=== PATIENT | female | born 2000 | race African-American/Black ===

== ENCOUNTER 2018-03-09 23:01 | Emergency (ER) | payer SELFPAY ==
[2018-03-09 23:18] LABS: URINE HCG POC HCG NEGATIVE (Negative)
[2018-03-09 23:37] LABS: BILIRUBIN,URINE NEGATIVE (NEG); CLARITY,URINE CLEAR; COLOR,URINE YELLOW; GLUCOSE,URINE NEGATIVE (NEG); NITRITE,URINE NEGATIVE (NEG); PROTEIN,URINE NEGATIVE (NEG-TRACE)
[2018-03-09 23:41] LABS: SQUAMOUS EPITHELIAL CELL,UR FEW /LPF
[2018-03-09 23:42] LABS: BACTERIA,URINE 0 /HPF (0-FEW); RBC,URINE 0 /HPF (0-2)
[2018-03-09] MEDS: metroNIDAZOLE 500 MG TABLET PO (23:48)
[2018-03-09] MEDS: cefTRIAXone IM 250 MG VIAL IM (23:49)
[2018-03-09] MEDS: AZITHROMYCIN 250 MG TABLET. PO (23:49)
[2018-03-12 14:26] LABS: CHLAMYDIA PROBE Negative (Negative); GC PROBE Negative (Negative)
== END 2018-03-10 00:50 | disposition home or self-care (01) ==
LOC: ER 03-10 00:50
DX: N39.0 Urinary tract infection, site not specified (principal); Z20.2 Contact with and (suspected) exposure to infections with a predominantly sexual mode of transmission; Z90.89 Acquired absence of other organs
CPT/HCPCS: 81001; 81025; 87086; 87491; 87591; 96372; 99284; J0696; Q0111; Q0144